=== PATIENT | female | born 1965 | race Caucasian/White ===

== ENCOUNTER 2023-01-17 16:26 | Emergency (ER) | payer BC, MEDICAID ==
[~2023-01-17] VITALS: Ht 152.4 cm; Wt 56.7 kg
[2023-01-17 16:26] VITALS: BP_SYST 178; PULSE 69; RESP 18; TEMP 98.4; O2SAT 98
[2023-01-17 17:11] VITALS: BP_SYST 178; PULSE 69; RESP 18; TEMP 98.4; O2SAT 98
== END 2023-01-17 17:11 | disposition home or self-care (01) ==
LOC: SED 16:26
DX: Z02.89 Encounter for other administrative examinations (principal); Z79.899 Other long term (current) drug therapy
CPT/HCPCS: 99283